=== PATIENT | female | born 1955 | race African-American/Black ===

== ENCOUNTER 2018-01-12 13:00 | Emergency (ER) | payer MEDICAID ==
[~2018-01-12] VITALS: Ht 165.1 cm; Wt 91.0 kg
[2018-01-12] MEDS ORDERED: SODIUM CHLORIDE 0.9% 1,000 ML IV ONE (13:54)
[2018-01-12 14:36] LABS: BASOPHILS % 0.7 % (0.0-2.0); EOSINOPHILS % 2.4 % (0.0-5.0); HEMATOCRIT. 39.3 % (36.0-48.0); HEMOGLOBIN. 13.3 g/dL (12.0-16.0); LYMPHOCYTES % 22.1 % (20.0-50.0); MEAN CORPUSCULAR HEMOGLOBIN 29.1 pg (28.0-32.0); MEAN PLATELET VOLUME 7.8 fl (7.4-10.4); MONOCYTES % 7.4 % (2.0-8.0); NEUTROPHILS % 67.4 % (40.0-76.0); PLATELET 280 x1000/uL (130-400); RED BLOOD CELL COUNT 4.57 mill/uL (4.2-5.4); RED CELL DISTRIBUTION WIDTH 15.4 % (11.6-14.6)
[2018-01-12 14:39] LABS: CHLORIDE 102 mEq/L (98-107)
[2018-01-12] MEDS ORDERED: INSULIN REGULAR (HUMULIN R) UD 100 UNITS/ML SYR IV ONE (15:00)
[2018-01-12] MEDS: INSULIN REGULAR (HUMULIN R) 300UNITS/3ML IV NR ×2 (15:23→15:53)
[2018-01-12 16:34] VITALS: BP 148/78
== END 2018-01-12 16:50 | disposition home or self-care (01) ==
LOC: ER 14:00
DX: E11.65 Type 2 diabetes mellitus with hyperglycemia (principal); I10 Essential (primary) hypertension; E87.70 Fluid overload, unspecified
CPT/HCPCS: 36415; 71045; 80048; 82962; 85025; 96361; 96374; 99285; J1815; J7030

== ENCOUNTER 2018-08-31 18:47 | Emergency (ER) | payer MEDICAID, MEDICARE ==
[~2018-08-31] VITALS: Ht 162.6 cm; Wt 91.0 kg
[2018-08-31] MEDS ORDERED: SODIUM CHLORIDE 0.9% 1,000 ML IV ONE (19:06)
[2018-08-31] MEDS ORDERED: ACETAMINOPHEN 325MG TABLET PO STA (19:06)
[2018-08-31] MEDS ORDERED: MAGNESIUM/ALUMINUM HYDROXIDE/SIMETHICONE 30ML UDC PO STA (19:06)
[2018-08-31] MEDS ORDERED: FAMOTIDINE 20MG/2ML VIAL IV STA (19:06)
[2018-08-31] MEDS ORDERED: KETOROLAC 15MG/ML VIAL IV ONE (20:00)
[2018-08-31 20:57] LABS: BASOPHILS % 0.8 % (0.0-2.0); EOSINOPHILS % 3.1 % (0.0-5.0); HEMATOCRIT. 45.6 % (36.0-48.0); LYMPHOCYTES % 19.4 % (20.0-50.0); MEAN CORPUSCULAR HEMOGLOBIN 29.9 pg (28.0-32.0); MEAN CORPUSCULAR VOLUME 90.6 fL (81.0-99.0); MEAN PLATELET VOLUME 8.6 fl (7.4-10.4); MONOCYTES % 6.1 % (2.0-8.0); NEUTROPHILS % 70.6 % (40.0-76.0); PLATELET 297 x1000/uL (130-400); RED BLOOD CELL COUNT 5.03 mill/uL (4.2-5.4); RED CELL DISTRIBUTION WIDTH 14.2 % (11.6-14.6)
[2018-08-31 21:02] LABS: INR 0.9; PROTHROMBIN TIME 9.4 sec (9.1-11.1)
[2018-08-31 21:03] LABS: CHLORIDE 101 mEq/L (98-107)
[2018-08-31 22:37] LABS: CLARITY URINE CLEAR (CLEAR); COLOR URINE YELLOW (YELLOW); KETONES URINE NEGATIVE (NEGATIVE); LEUKOCYTE ESTERASE URINE NEGATIVE (NEGATIVE); NITRITE URINE POSITIVE (NEGATIVE); OCCULT BLOOD URINE NEGATIVE (NEGATIVE); PH URINE 5.5 (4.5-8.0); PROTEIN URINE NEGATIVE (NEGATIVE); UROBILINOGEN URINE 0.2 E.U./dL (0.2-1.0)
[2018-08-31] MEDS ORDERED: SODIUM CHLORIDE 0.9% 1,000 ML IV NR (23:30)
[2018-08-31] MEDS ORDERED: INSULIN REGULAR (HUMULIN R) 300UNITS/3ML SUBCUT NR (23:30)
[2018-09-01] MEDS ORDERED: CEFTRIAXONE 1 G PREMIX 50 ML IV NR (00:45)
[2018-09-01] MEDS ORDERED: INSULIN REGULAR (HUMULIN R) 300UNITS/3ML SUBCUT ONE (02:15)
[2018-09-01 13:09] VITALS: BP 147/77
== END 2018-09-01 13:35 | disposition home or self-care (01) ==
LOC: ER 18:47
DX: R05 Cough (principal); N39.0 Urinary tract infection, site not specified; E11.65 Type 2 diabetes mellitus with hyperglycemia; R07.81 Pleurodynia; I10 Essential (primary) hypertension; F17.200 Nicotine dependence, unspecified, uncomplicated; E88.09 Other disorders of plasma-protein metabolism, not elsewhere classified; Z59.0 Homelessness
CPT/HCPCS: 36415; 71045; 80053; 81003; 82962; 83690; 84484; 85025; 85610; 93005; 96361; 96365; 96372; 96375; 99284; J0696; J1815; J1885; J3490; J7030